=== PATIENT | female | born 1940 | race Caucasian/White ===

== ENCOUNTER 2020-05-29 14:01 | Outpatient (REF) | payer MEDICARE, OTHER, SELFPAY | END 2020-05-29 14:02 | disposition home or self-care (01) | LOC: HO.HOSX 14:01 | PROVIDERS: Visit Provider Orthopaedic Surgery | DX: Z13.89 Encounter for screening for other disorder (principal) ==

== ENCOUNTER 2020-05-30 12:52 | Outpatient (REF) | payer MEDICARE, MEDICAID, SELFPAY ==
--- NOTE | 2020-05-30 13:02 | XR_ITS ---
EXAMINATION: XR SHOULDER, LEFT CLINICAL INFORMATION: Left shoulder pain. COMPARISON: None. TECHNIQUE: AP external rotation, Grashey, scapular Y, and axillary views of the left shoulder. FINDINGS: There is no evidence of acute fracture or dislocation of the left shoulder. No calcific tendinitis. Glenohumeral joint unremarkable. No significant degenerative change of the acromioclavicular joint is seen. No widening of the coracoclavicular space is seen. Pacemaker power pack present in the left upper chest. XR/XR shoulder LT min 2V IMPRESSION: No significant left shoulder abnormality appreciated.
== END 2020-05-30 12:53 | disposition home or self-care (01) ==
LOC: HO.HOSX 12:52
PROVIDERS: PCP Family Medicine; Visit Provider Orthopaedic Surgery
DX: M75.42 Impingement syndrome of left shoulder (principal); S46.812A Strain of other muscles, fascia and tendons at shoulder and upper arm level, left arm, initial encounter
CPT/HCPCS: 73030; Q3014

== ENCOUNTER 2020-08-04 13:44 | Outpatient (REF) | payer MEDICARE, OTHER, SELFPAY ==
--- NOTE | ~2020-08-04 | MM_ITS ---
EXAMINATION: MM SCREENING DIGITAL BREAST TOMOSYNTHESIS, BILATERAL CLINICAL INFORMATION: Screening. Asymptomatic. The lifetime risk of breast cancer based on the Tyrer-Cuzick Model is 3%. COMPARISON: Mammography: 05/05/2019, 04/29/2018, 03/07/2017 TECHNIQUE: Digital breast tomosynthesis is performed in both the craniocaudal and mediolateral oblique views along with computer-aided detection (CAD). Synthesized 2D images are generated from the tomosynthesis. FINDINGS: There are scattered areas of fibroglandular density (ACR BI-RADS breast composition Category b). There are no significant masses, abnormal calcifications, or other abnormalities. The parenchymal pattern is similar to prior studies. Scattered asymmetries are stable. There is no developing density. There are increased benign appearing calcifications in both breasts, some are round and many are ductal secretory. No suspicious calcifications. MM/MM tomosynthesis screening BI IMPRESSION: No significant changes from prior exams. ASSESSMENT: BI-RADS 2: Benign RECOMMENDATION: Routine annual mammography screening. This patient's information was entered into a reminder system with a target due date for their next mammogram.
== END 2020-08-04 13:45 | disposition home or self-care (01) ==
LOC: HO.MAMMO 13:44
PROVIDERS: PCP Internal Medicine; Visit Provider Internal Medicine
DX: Z12.31 Encounter for screening mammogram for malignant neoplasm of breast (principal)
CPT/HCPCS: 77063; 77067

== ENCOUNTER → 2020-08-15 09:58 | Outpatient (BNVA) | payer MEDICARE, MEDICAID, SELFPAY | PROVIDERS: PCP Internal Medicine; Visit Provider Orthopaedic Surgery | DX: M75.42 Impingement syndrome of left shoulder (principal) | CPT/HCPCS: 20610; 99212; J1040 ==

== ENCOUNTER 2021-09-17 09:36 | Day surgery (SDC) | payer MEDICARE, OTHER, SELFPAY ==
[2021-09-11 11:08] VITALS: BMI 32.1
--- NOTE | 2021-09-14 16:12 | MHC.SHP ---
Pre-Procedural Eval Section A Date of Service: 09/14/21 The patient is an INPATIENT: No Changes since office visit: No Cold of Flu in the past 2 weeks, No New Medical Problems, No Changes in Medication and No Patient answered all questions The History & Physical has been completed within 30 days and I have reviewed it.: Yes Section B Chief Complaint: upper eyelid skin Allergies: Allergies Allergy/AdvReac Type Severity Reaction Status Date / Time iopromide [From Ultravist] Allergy Mild HEAVINESS Verified 09/11/21 11:05 IN CHEST, SNIFFLES, HEAD STUFFINESS Plan Diagnosis/Plan: Unchanged I have reviewed the history and physical and performed a pertinent physical examination on my patient. No changes have occurred unless specified.
[2021-09-17 10:36] VITALS: BP 149/81; PULSE 60; RESP 16; TEMP 36.6; O2SAT 97
[2021-09-17 10:40] LABS: Glucose, Whole Blood 104 mg/dL (60-115)
[2021-09-17] MEDS: Albuterol Sulfate (0.083%) 2.5 MG/3 ML VIAL.NEB INHALE (11:03)
[2021-09-17 11:04] VITALS: PULSE 60; RESP 20; O2SAT 95
--- NOTE | 2021-09-17 11:08 | HO.PNOPHT ---
Ophthalmology Procedure Procedure Date of Service: 09/17/21 Ophthalmology Viscoelastic: Not Applicable Ophthalmology Lenses: Not Applicable Procedure Notes: PREOPERATIVE DIAGNOSIS: Decreased visual field secondary to dermatochalasia POSTOPERATIVE DIAGNOSIS: Same PROCEDURE: Bilateral Blepharoplasty, upper eyelids SURGEON: Stephen Cui M.D. ANESTHESIA: Local with sedation ESTIMATED BLOOD LOSS: None COMPLICATIONS: None After obtaining informed consent, the patient was brought to the operating room and placed in supine position. After adequate sedation per Anesthesia, the eyes were prepped and draped in the usual sterile fashion. Attention was directed to the right eye where a double pinch test was completed to assure excess tissue was not removed from the upper lid. The margin was marked at the proposed incision sites. The left eye was done in a similar fashion. 2% Lidocaine with epinephrine was then instilled subcutaneously along the margin of the pre-marked skin incisions. #15 scalpel blade was then utilized to create the incisions. Using a combination of sharp and blunt dissection with Allison scissors, the epidermis was removed. Hemostasis was achieved with cautery. 6-0 plain suture was then utilized to close the incision site. Attention was directed to the left upper lid where subcutaneous 2% with Epinephrine Lidocaine was instilled along the pre-marked areas. A #15 scalpel blade was then utilized to create the incisions followed by sharp and blunt dissection with Allison scissors to remove the overlying epidermis. Hemostasis was achieved with cautery, followed by closure with 6-0 plain suture. The patient tolerated the procedure well. The patient will be followed up in the a.m. Topical antibiotic ointment was instilled over the incision sites and ice as tolerated for 48 hours.
--- NOTE | 2021-09-17 11:21 | P.CONAN_ITS ---
HPI - Anesthesia Eval Consult details Narrative: b/l eye lid drooping PMFSH Active Problems Active Problems: All Active Problems (Updated 09/11/21 @ 14:19 by Marium Walsh RN) Rotator cuff impingement syndrome of left shoulder (Acute) Strain of left trapezius muscle (Acute) Past Medical History Medical History (Updated 09/11/21 @ 14:19 by Marium Walsh RN) Anemia Arthritis Atrial flutter Carotid artery stenosis Chronic renal insufficiency COPD (chronic obstructive pulmonary disease) COVID-19 vaccine series completed Diabetes Elevated cholesterol Hx of bipolar disorder Hx of cardiac pacemaker Hypertension Melanoma Sleep apnea Tachy-rg syndrome Family History Family history of problems with anesthesia: No Surgical History Surgical History (Updated 09/11/21 @ 10:30 by Marium Walsh RN) H/O colonoscopy History of dilatation and curettage History of meniscectomy of left knee History of total left knee replacement Hx of cataract extraction Hx of hysterectomy History of Problems with Anesthesia: No Social History Social History Housing Other:: mobile home Are you a primary personal care assistant to a significant other at home: No Do you presently have visiting nurse or other home services: Yes (public service officer 3days/week) Patient Tobacco Use Status: Current everyday Tobacco user Tobacco use type: Cigarette Cigarettes Per Day: 12 Years Smoked: 40 Use of substances other than those prescribed or required for medical reasons: No Have you been hit, kicked, punched, or otherwise hurt by someone within the past year? If so, by whom?: No Are you DNR?: No Advance Directives: No Advance Directives Information Provided: Yes (brochure mailed) Advance Directives on File: No Recently lost weight without trying: No Eating poorly because of decreased appetite: No Nutrition Risks: Surgical patient >75years Poor oral hygiene: No Current occupational status: unemployed Current occupation: [employer] Meds Allergies Allergy/AdvReac Type Severity Reaction Status Date / Time iopromide [From Ultravist] Allergy Mild HEAVINESS Verified 09/17/21 10:34 IN CHEST, SNIFFLES, HEAD STUFFINESS Active Medications: Current Medications Albuterol Sulfate (Albuterol Sulfate (0.083%) 2.5 Mg/3 Ml Vial.Neb) 2.5 mg INHALE ONCE PRN PRN Reason: Shortness of Breath/Wheezing Last Admin: 09/17/21 11:03 Dose: 2.5 mg Documented by: Lactated Ringer's (Lr) 500 mls @ 50 mls/hr IV .Q10H BOLA Stop: 09/17/21 19:44 Povidone Iodine (Povidone Iodine 5 % Ophth Soln 30 Ml Bottle) 1 appl EYE-BOTH PREOP PRN PRN Reason: Pre-Op Surgical Implant Prophy Home Medications Medication Instructions Recorded Confirmed Last Taken Type albuterol sulfate 90 mcg/actuation 2 puff INHALATION Q4-6H PRN 05/30/20 09/11/21 09/17/21 08:00 History aerosol inhaler (Ventolin HFA) divalproex 250 mg tablet,extended 125 mg PO BID tab 05/30/20 Unknown History release 24 hr furosemide 20 mg tablet 10 mg PO BID 05/30/20 09/11/21 Unknown History metformin 500 mg tablet 1,500 mg PO DAILY 05/30/20 09/11/21 Unknown History metoprolol succinate 25 mg 25 mg PO BID 05/30/20 09/11/21 09/17/21 08:00 History tablet,extended release 24 hr sertraline 100 mg tablet 200 mg PO DAILY 05/30/20 09/11/21 09/17/21 08:00 History tizanidine 4 mg capsule 4 mg PO BEDTIME 05/30/20 09/11/21 Unknown History tramadol 50 mg tablet 50 mg PO BID 05/30/20 09/11/21 09/17/21 08:00 History mirabegron 50 mg tablet,extended 50 mg PO DAILY 08/15/20 09/11/21 Unknown History release 24 hr (Myrbetriq) acetaminophen 500 mg tablet 1,500 mg PO DAILY 09/11/21 09/11/21 Unknown History albuterol sulfate 1 vial INHALATION Q4H PRN 09/11/21 09/11/21 Unknown History amlodipine 5 mg tablet 1 tab PO DAILY 09/11/21 09/11/21 09/17/21 08:00 History montelukast 10 mg tablet 1 tab PO BEDTIME 09/11/21 09/11/21 Unknown History pravastatin 80 mg tablet 1 tab PO DAILY 09/11/21 09/11/21 Unknown History Exam Exam Date and Time: September 17, 2021 1121 Height,Weight and Vital Signs: Height 5 ft 2 in Weight 79.832 kg Last Vital Signs Temp 97.8 F 09/17/21 10:36 Pulse 60 09/17/21 11:04 Resp 20 09/17/21 11:04 BP 149/81 H 09/17/21 10:36 Pulse Ox 97 09/17/21 10:36 Pertinent Lab Results Pertinent Lab Results: Laboratory Tests 09/17/21 10:36 POC Glucose 104 Airway Mallampati Class: II TM Dist: >3cm Neck ROM: Full Loose/Missing/Broken Teeth: No (poor dentition, brown teeth, patient denies any loose teeth) Heart: [id number] Lungs: cta b/l Assessment and Plan Assessment Anesthesia Assessment: Anesthesia Plan Discussed and Chart Reviewed Final Anesthetic Review Family History of Problems with Anesthesia: No History of Problems with Anesthesia: No NPO: Yes ASA Class: III Final Preanesthetic Review: No Changes in Pt Med Stat, Meds/Allgs Chart Reviewed, Consent Obtained/Reviewed and Anes Risks/Benef Reviewed Patient Risk: Intermediate Procedure Risk: Low Assessment/Block/Sedation in SS: Assess/Block/Sedation-SS Anesthetic Plan Anesthetic Plan: MAC: and Agree w/ Assess. and Plan Disposition: Standard PACU
[2021-09-17 12:31] VITALS: BP 145/51; PULSE 60; RESP 16; TEMP 37; O2SAT 96
== END 2021-09-17 12:59 | disposition home or self-care (01) ==
PROVIDERS: PCP Internal Medicine; Visit Provider Ophthalmology
PROC: (CPT 15823; principal; 2021-09-17 11:10)
DX: H02.31 Blepharochalasis right upper eyelid (principal); H02.34 Blepharochalasis left upper eyelid; Z96.1 Presence of intraocular lens; G47.33 Obstructive sleep apnea (adult) (pediatric); J44.9 Chronic obstructive pulmonary disease, unspecified; I10 Essential (primary) hypertension; E11.9 Type 2 diabetes mellitus without complications; E78.00 Pure hypercholesterolemia, unspecified; Z79.84 Long term (current) use of oral hypoglycemic drugs; Z79.899 Other long term (current) drug therapy; F17.210 Nicotine dependence, cigarettes, uncomplicated
CPT/HCPCS: 15823; 82947; 94640; J2250; J3010

== ENCOUNTER 2022-02-18 10:34 | Outpatient (REF) | payer MEDICARE, OTHER, SELFPAY ==
[2022-02-18 13:15] VITALS: BMI 33.3
[2022-02-18 13:16] VITALS: BP 147/52; PULSE 60; RESP 16; TEMP 36.5; O2SAT 98
[2022-02-18 15:19] VITALS: BP 147/46; PULSE 60; RESP 16; O2SAT 95
== END 2022-02-18 10:35 | disposition home or self-care (01) ==
LOC: HO.MS 10:34
PROVIDERS: PCP Internal Medicine; Visit Provider Ophthalmology
PROC: (CPT 67840; principal; 2022-02-18 15:20)
DX: H02.822 Cysts of right lower eyelid (principal); D23.111 Other benign neoplasm of skin of right upper eyelid, including canthus; L82.1 Other seborrheic keratosis
CPT/HCPCS: 67840 ×2; 88304; 88305